=== PATIENT | male | born 1980 | race Caucasian/White ===

== ENCOUNTER 2018-01-26 10:09 | Emergency (ER) | payer SELFPAY ==
[2018-01-26 10:15] VITALS: RESP 16; TEMP 98; O2SAT 98
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
[2018-01-26 13:14] VITALS: BP 131/77; PULSE 64
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
== END 2018-01-26 13:14 | disposition home or self-care (01) ==
LOC: H.ER 10:09
DX: S99.921A Unspecified injury of right foot, initial encounter (principal); F17.200 Nicotine dependence, unspecified, uncomplicated; W23.0XXA Caught, crushed, jammed, or pinched between moving objects, initial encounter